=== PATIENT | male | born 1990 | race Asian ===

== ENCOUNTER 2019-01-22 01:21 | Emergency (ER) | payer OTHER ==
[2019-01-22 01:36] VITALS: BP 152/98
[2019-01-22] MEDS ORDERED: COLCHICINE 0.6 MG CAP/TAB PO ONE (03:05)
--- NOTE | 2019-01-22 03:17 | EDPHY ---
H & P Stated Complaint: right knee pain x1 hr, hx of gout Time Seen by Provider: 01/22/19 02:54 HPI/ROS: HPI The patient presents with right knee pain, concern for gout flare. The patient drink a beer tonight with dinner and was driving home when he developed progressive severe achy pain throughout his right knee. He had no trauma to the area. This felt like his prior gout flare which he had in 2016 in his right ankle. He does not have any numbness or tingling of his leg. He took a dose of ibuprofen and now comes to the emergency department. REVIEW OF SYSTEMS 10 systems were reviewed and negative with the exception of the elements mentioned in the history of present illness. PMHx: Prior history of gout Soc Hx: Lives in [place], visiting PHYSICAL General Appearance: Alert, no distress Eyes: Pupils equal and round no pallor or injection ENT, Mouth: Mucous membranes moist Respiratory: There are no retractions, lungs are clear to auscultation Cardiovascular: Regular rate and rhythm Gastrointestinal: Abdomen is soft and non-tender, no masses, bowel sounds normal Neurological: A&O, moves all extremities Skin: Warm and dry, no rashes Musculoskeletal: Neck is supple non tender Extremities: Right knee is slightly warm to palpation diffusely, there is no overlying erythema, there is moderate joint effusion present, Psychiatric: Patient is oriented X 3, there is no agitation ited range of motion secondary to pain Source: Patient Exam Limitations: No limitations - Personal History Current Tetanus/Diphtheria Vaccine: Unsure Current Tetanus Diphtheria and Acellular Pertussis (TDAP): Unsure - Medical/Surgical History Hx Asthma: No Hx Chronic Respiratory Disease: No Hx Diabetes: No Hx Cardiac Disease: No Hx Renal Disease: No Hx Cirrhosis: No Hx Alcoholism: No Hx HIV/AIDS: No Hx Splenectomy or Spleen Trauma: No Other PMH: HTN, GOUT, HIGH CHOLESTEROL, FATTY LIVER - Social History Smoking Status: Current every day smoker Constitutional: Initial Vital Signs Temperature (C) 36.8 C 01/22/19 01:32 Heart Rate 88 01/22/19 01:32 Respiratory Rate 18 01/22/19 01:32 Blood Pressure 152/98 H 01/22/19 01:32 O2 Sat (%) 94 01/22/19 01:32 O2 Delivery Mode Room Air Allergies/Adverse Reactions: No Known Allergies Allergy (Verified 01/22/19 01:35) Home Medications: Medication Instructions Recorded Colchicine 0.6 mg PO BID #20 capsule 01/22/19 Medical Decision Making Differential Diagnosis: 28-year-old male with atraumatic right knee pain, history of gout, with pain for the last 1 hr. He does have a warm effusion on my exam. I have offered him arthrocentesis, however he declines. I will give him colchicine, Hans wrap, crutches. He is followed in [place] for his primary care and will follow their in the next few days. - Data Points Medications Given: Discontinued Medications Colchicine (Colchicine) 1.2 mg PO EDNOW ONE Stop: 01/22/19 03:06 Last Admin: 01/22/19 03:08 Dose: 1.2 mg Departure - Departure Disposition: Home, Routine, Self-Care Clinical Impression: Gout flare Qualifiers: Gout site: knee Gout etiology: unspecified cause Laterality: right Qualified Code(s): M10.9 - Gout, unspecified Condition: Good Instructions: Low Purine Diet (ED), Gout (ED) Referrals: NONE *PRIMARY CARE P,. [Primary Care Provider] - As per Instructions Prescriptions: Colchicine 0.6 mg PO BID #20 capsule
== END 2019-01-22 03:26 | disposition home or self-care (01) ==
DX: M10.9 Gout, unspecified (principal); I10 Essential (primary) hypertension; E78.00 Pure hypercholesterolemia, unspecified